=== PATIENT | female | born 1960 | race Caucasian/White ===

== ENCOUNTER 2017-09-10 04:15 | Emergency (ER) | payer BC ==
[~2017-09-10] VITALS: Ht 167.6 cm; Wt 68.0 kg
[2017-09-10] MEDS ORDERED: ONDANSETRON HCL/PF 4 MG/2 ML VIAL ONE (04:40)
[2017-09-10] MEDS ORDERED: MORPHINE SULFATE INJ 4 MG/ML DISP.SYRIN ONE ×2 (04:49→05:17)
--- NOTE | 2017-09-10 04:56 | NUR ---
PT PRESENTED TO THE ER WITH A C/O SEVERE ABD PAIN. PT AMBULATED TO ER BED#9 WITH A SLOW STEADY GAIT AND GUARDING. PT APPEARS TO BE IN DISTRESS. PT IS ON THE MONITOR AND CONTINUOUS PULSE OX.
[2017-09-10] MEDS ORDERED: IV NS 0.9% 1,000 ML BAG IV ONE (05:00)
[2017-09-10] MEDS ORDERED: ONDANSETRON HCL/PF 4 MG/2 ML VIAL IV ONE (05:00)
[2017-09-10] MEDS ORDERED: ONDANSETRON HCL/PF 4 MG/2 ML VIAL IVP ONE (05:00)
[2017-09-10] MEDS ORDERED: MORPHINE SULFATE INJ 2 MG/ML DISP.SYRIN IV ONE (05:00)
[2017-09-10 05:02] LABS: BASOPHILS % (AUTO) 0.7 % (0.0-2.0); EOSINOPHILS % (AUTO) 1.5 % (0.0-6.0); HEMATOCRIT 38 % (33-45); HEMOGLOBIN 13.1 g/dL (11.5-14.8); LYMPHOCYTES % (AUTO) 49.5 % (20.0-44.0); MEAN CORPUSCULAR HEMOGLOBIN 34 PG (26.0-33.0); MEAN CORPUSCULAR HGB CONC 34 g/dl (31.0-36.0); MEAN CORPUSCULAR VOLUME 99 fL (82-100); MONOCYTES # (AUTO) 0.5 /CMM (0.1-1.30); MONOCYTES % (AUTO) 8.5 % (2.0-12.0); NEUTROPHILS # (AUTO) 2.4 /CMM (1.8-8.9); NEUTROPHILS % (AUTO) 39.8 % (43.0-81.0); PLATELET COUNT (AUTO) 298 /CMM (150-450); RDW COEFFICIENT OF VARIATION 12.9 (11.5-15.0); RED BLOOD CELL COUNT(AUTO) 3.89 MIL/uL (4.0-5.2)
--- NOTE | 2017-09-10 05:05 | NUR ---
PT LEFT FOR CT VIA [facility]
--- NOTE | 2017-09-10 05:14 | NUR ---
US TECH ARRIVED AND IS AT THE BEDSIDE.
--- NOTE | 2017-09-10 05:16 | NUR ---
PT REC'D MEDICATION ORDERED.
[2017-09-10 05:18] LABS: INR 0.91 (0.87-1.13)
[2017-09-10 05:19] LABS: BILIRUBIN,DIRECT 0.1 mg/dL (0.0-0.2); BILIRUBIN,TOTAL 0.3 mg/dL (0.2-1.0); CALCIUM, SERUM 8.5 mg/dL (8.5-10.1); POTASSIUM 3.8 mmol/L (3.5-5.1); TOTAL PROTEIN, SERUM 7.7 g/dL (6.4-8.2)
--- NOTE | 2017-09-10 05:30 | NUR ---
PT AMBULATED TO THE BATHROOM WITH A STEADY GAIT. URINE SAMPLE OBTAINED.
--- NOTE | 2017-09-10 06:18 | NUR ---
PT IS IN CT.
--- NOTE | 2017-09-10 06:24 | NUR ---
PT RETURNED FROM CT.
[2017-09-10] MEDS ORDERED: HYDROMORPHONE INJ 2 MG/ML DISP.SYRIN ONE (06:32)
--- NOTE | 2017-09-10 06:36 | NUR ---
PT C/O PAIN. DR FLORES NOTIFIED. NEW ORDERS GIVEN.
[2017-09-10 06:38] LABS: APPEARANCE,URINE CLEAR (CLEAR); BILIRUBIN,URINE NEGATIVE (NEGATIVE); BLOOD, URINE NEGATIVE Ery/uL (NEGATIVE); COLOR,URINE YELLOW (YELLOW); KETONES,URINE NEGATIVE (NEGATIVE); LEUKOCYTE ESTERASE ,URINE NEGATIVE (NEGATIVE); NITRITE, URINE NEGATIVE (NEGATIVE); PH,URINE 6.5 (5.0-8.0); PROTEIN,URINE NEGATIVE (NEGATIVE); UGLUCOSE NEGATIVE (NEGATIVE); UROBILINOGEN,URINE 0.2 EU/dL (0.2)
--- NOTE | 2017-09-10 06:55 | NUR ---
PT'S O2 SAT DESATURATED TO 89% ON RA WHILE SLEEPING. PT WAS PLACED ON 2L O2 VIA NC. PT IS NOW SATURATING AT 98%.
[2017-09-10] MEDS ORDERED: HYDROMORPHONE 1 MG/1 ML DISP.SYRIN IV ONE (07:00)
--- NOTE | 2017-09-10 07:14 | NUR ---
DR. FLORES IS AT THE BEDSIDE.
--- NOTE | 2017-09-10 07:14 | NUR ---
PT APPEARS TO BE RESTING COMFORTABLY WITH NO S/S OF PAIN OR DISTRESS.
--- NOTE | 2017-09-10 07:22 | NUR ---
IV removed. Catheter intact and site benign. Pressure and 4x4 applied to site. No bleeding noted.Patient discharged to home in stable condition. Written and verbal after care instructions given. Patient verbalizes understanding of instruction AND RX. PT REC'D A COPY OF THE IMAGING AND LABS. PT AMBULATED OUT WITH A STEADY GAIT. VSS. NAD NOTED.
[2017-09-10 07:24] VITALS: BP 123/67
== END 2017-09-10 07:27 | disposition home or self-care (01) ==
LOC: ER 04:19
DX: R10.31 Right lower quadrant pain (principal); R11.2 Nausea with vomiting, unspecified; Z90.89 Acquired absence of other organs; Z88.1 Allergy status to other antibiotic agents; Z88.2 Allergy status to sulfonamides; Z88.6 Allergy status to analgesic agent
CPT/HCPCS: 36415; 74176; 76856; 80048; 80076; 81001; 83690; 85025; 85730; 96361; 96374; 96375; 99285; A4606; J1170; J2270; J2405; J7030; Z7610; 81000-TC

== ENCOUNTER → 2020-04-22 | Emergency (ER) | payer BC ==
[~2020-04-22] VITALS: Ht 167.6 cm; Wt 79.8 kg
[~2020-04-22] MED LIST: CT SWABBABLE VALVE TRANS SET 1 EA INFUS.SET MC ONE; IOHEXOL-300 100 ML VIAL IV ONE; IV NS 0.9% 1,000 ML BAG IV ONE; IV NS 0.9% 250 ML IV ONE; KETOROLAC TROMETHAMINE 15 MG/ML VIAL ONE; KETOROLAC TROMETHAMINE INJ 30 MG/ML VIAL IV ONE; MORPHINE SULFATE INJ 2 MG/ML DISP.SYRIN IV ONE; MORPHINE SULFATE INJ 4 MG/ML DISP.SYRIN ONE; ONDANSETRON HCL/PF - ER 4 MG/2 ML VIAL IV ONE; ONDANSETRON HCL/PF 4 MG/2 ML VIAL IVP ONE; ONDANSETRON HCL/PF 4 MG/2 ML VIAL ONE
--- NOTE | 2020-04-22 15:33 | NUR ---
[email or web address], from home, c/o abd pain radiating lower back, +nausea/vomiting and diarrhea, 10/10 pain scale, to ER bed 3, hooked to monitor, changed to hosp gown, warm blanket provided, patient aao X 4. awaiting MD madrigal
--- NOTE | 2020-04-22 15:34 | NUR ---
Dr Thomas at bedside
--- NOTE | 2020-04-22 15:49 | NUR ---
KILEY GROVER AT BEDSIDE FOR EKG
--- NOTE | 2020-04-22 15:52 | NUR ---
PATIENT REFUSED EKG AT THIS TIME "I'M IN SO MUCH PAIN", AWARE
[2020-04-22 16:14] LABS: BASOPHILS % (AUTO) 0.3 % (0.0-2.0); EOSINOPHILS % (AUTO) 0.5 % (0.0-6.0); HEMATOCRIT 40 % (33-45); HEMOGLOBIN 13.4 g/dL (11.5-14.8); LYMPHOCYTES # (AUTO) 1.8 /CMM (0.8-4.8); LYMPHOCYTES % (AUTO) 17.9 % (20.0-44.0); MEAN CORPUSCULAR HGB CONC 34 g/dl (31.0-36.0); MEAN CORPUSCULAR VOLUME 100 fL (82-100); MONOCYTES # (AUTO) 0.7 /CMM (0.1-1.30); MONOCYTES % (AUTO) 6.8 % (2.0-12.0); NEUTROPHILS # (AUTO) 7.4 /CMM (1.8-8.9); NEUTROPHILS % (AUTO) 74.5 % (43.0-81.0); PLATELET COUNT (AUTO) 285 /CMM (150-450); RED BLOOD CELL COUNT(AUTO) 3.99 MIL/uL (4.0-5.2); WHITE BLOOD COUNT (AUTO) 9.9 K/uL (4.3-11.0)
--- NOTE | 2020-04-22 16:15 | NUR ---
KILEY GROVER AT BEDSIDE FOR EKG
[2020-04-22 16:28] LABS: CALCIUM, SERUM 9.3 mg/dL (8.5-10.1); CREATININE 0.9 mg/dL (0.6-1.3); POTASSIUM 3.9 mmol/L (3.5-5.1)
[2020-04-22 16:33] LABS: ALBUMIN 4.1 g/dL (3.4-5.0); BILIRUBIN,DIRECT 0.2 mg/dL (0.0-0.2); BILIRUBIN,TOTAL 0.5 mg/dL (0.2-1.0); TOTAL PROTEIN, SERUM 7.9 g/dL (6.4-8.2)
[2020-04-22 16:37] LABS: BILIRUBIN,URINE Negative (NEGATIVE); COLOR,URINE YELLOW (YELLOW); LEUKOCYTE ESTERASE ,URINE Negative (NEGATIVE); NITRITE, URINE Negative (NEGATIVE); PROTEIN,URINE Negative (NEGATIVE); UGLUCOSE Negative (NEGATIVE); UROBILINOGEN,URINE 0.2 EU/dL (0.2)
[2020-04-22 16:50] LABS: BACTERIA,URINE Few /HPF (None Seen); SQUAMOUS EPITHELIAL CELL,UR Few /HPF (None Seen); URINE AMORPHOUS PHOSPHATES Few /HPF (None Seen)
--- NOTE | 2020-04-22 17:46 | NUR ---
PATIENT STILL FEELS NAUSEOUS AND 9/10 ABDOMINAL PAIN, MADE MD AWARE
--- NOTE | 2020-04-22 19:05 | NUR ---
REC'D REPORT FROM CANDIDO CHAPMAN FOR [facility]AG[facility]
--- NOTE | 2020-04-22 19:05 | NUR ---
REPORT GIVEN TO OMA REY FOR [facility]
--- NOTE | 2020-04-22 19:31 | NUR ---
Patient discharged to home in stable condition. Written and verbal after care instructions given. Patient verbalizes understanding of instruction. IV removed. Catheter intact and site benign. Pressure and 4x4 applied to site. No bleeding noted. Pt ambulatory with a steady gait
[2020-04-22 19:34] VITALS: BP 118/60
== END | disposition home or self-care (01) ==
LOC: ER 15:32
DX: R10.13 Epigastric pain (principal); R16.0 Hepatomegaly, not elsewhere classified; R74.01 Elevation of levels of liver transaminase levels; R11.2 Nausea with vomiting, unspecified; Z90.89 Acquired absence of other organs; Z88.1 Allergy status to other antibiotic agents; Z88.2 Allergy status to sulfonamides; Z88.8 Allergy status to other drugs, medicaments and biological substances
CPT/HCPCS: 36415; 74177; 76705; 80048; 80076; 81001; 83690; 85025; 87086; 93005; 96361; 96374; 96375; 96376; 99285; J1885; J2270 ×2; J2405 ×2; J7030; J7050; Q9967